=== PATIENT | male | born 1975 | race Two or more races ===

== ENCOUNTER 2018-05-11 08:44 | Emergency (ER) | payer OTHER ==
[2018-05-11] MEDS ORDERED: ONDANSETRON 4 MG/2 ML VIAL IVP ONE (09:03)
[2018-05-11] MEDS ORDERED: NS 1,000 ML IV ONE ×2 (09:03→09:31)
--- NOTE | 2018-05-11 09:27 | EDPHY ---
H & P Time Seen by Provider: 05/11/18 09:25 HPI/ROS: Chief complaint. Abdominal pain HPI. 43-year-old male presents emergency department with left-sided abdominal and flank pain that began at 5:00 a.m. Today. He has had urinary frequency and dysuria the last several days. He has a history of kidney stone and this feels similar. He has had nausea and vomiting. He can't get comfortable. Penis and testicles are normal. No chest pain or shortness of breath. No fever. ROS 10 systems were reviewed and negative with the exception of the elements mentioned in the history of present illness Past Medical/Surgical History: Kidney stone Social History: Single, nonsmoker, no alcohol Smoking Status: Never smoked Physical Exam: General Appearance: Alert well-developed male moderate distress. Vital signs are stable Eyes: Pupils equal and round no pallor or injection. ENT, Mouth: Mucous membranes are moist. Respiratory: There are no retractions, lungs are clear to auscultation. Cardiovascular: Regular rate and rhythm. Gastrointestinal: Abdomen is soft and nontender to my palpation. He shows me left mid abdomen and left flank pain. No masses. Normal bowel sounds Neurological: Awake and alert, sensory and motor exams grossly normal. Skin: Warm and dry, no rashes. Musculoskeletal: Neck is supple nontender. Extremities symmetrical, full range of motion. Psychiatric: Patient is oriented X 3, there is no agitation. Constitutional: Initial Vital Signs Temperature (C) 36.4 C 05/11/18 08:46 Heart Rate 68 05/11/18 08:46 Respiratory Rate 18 05/11/18 08:46 Blood Pressure 147/97 H 05/11/18 08:46 O2 Sat (%) 99 05/11/18 08:46 O2 Delivery Mode Room Air Allergies/Adverse Reactions: No Known Allergies Allergy (Unverified 05/11/18 08:45) Home Medications: Medication Instructions Recorded Ondansetron Odt [Zofran Odt] 4 mg PO Q4PRN PRN #4 tab 05/11/18 oxyCODONE/APAP 5/325 [Percocet 1 tab PO Q4-6PRN PRN #7 tab 05/11/18 5/325] Medical Decision Making - Diagnostics Imaging Results: Imaging Impressions Abdomen/Pelvis CT 05/11/18 09:32 Impression: Distal left ureteral calculus, likely to pass. Results called to Dr. Alexis Barton at 10:05 AM. General information for patients regarding this examination can be found at [email or web address]. If you have questions or comments about this report, please contact me at (hospital) or [phone] (cell). Noncontrast CT reviewed by me and discussed with Dr. Soto shows a 3 mm distal left ureteral calculus Procedures: IV normal saline. Zofran, Dilaudid, Toradol for pain ED Course/Re-evaluation: Re-evaluation 9:50 . Patient is much improved after medication Re-evaluation 10:40 a.m.. Patient is stable. No pain. He and I discussed imaging and lab results. We discussed treatment plan including criteria for return importance of follow-up and further evaluation. He expresses understanding and agreement Differential Diagnosis: I considered urinary tract infection, diverticulitis, kidney stone - Data Points Laboratory Results: Laboratory Results 05/11/18 09:00 05/11/18 09:00 05/11/18 05/11/18 05/11/18 09:00 09:00 09:00 WBC 12.12 10^3/uL H 10^3/uL (3.80-9.50) RBC 5.35 10^6/uL 10^6/uL (4.40-6.38) Hgb 16.0 g/dL g/dL (13.7-17.5) Hct 47.6 % % (40.0-51.0) MCV 89.0 fL fL (81.5-99.8) MCH 29.9 pg pg (27.9-34.1) MCHC 33.6 g/dL g/dL (32.4-36.7) RDW 12.9 % % (11.5-15.2) Plt Count 340 10^3/uL 10^3/uL (150-400) MPV 9.7 fL fL (8.7-11.7) Neut % (Auto) 63.6 % % (39.3-74.2) Lymph % (Auto) 25.7 % % (15.0-45.0) [place] % (Auto) 5.0 % % (4.5-13.0) Eos % (Auto) 4.3 % % (0.6-7.6) Baso % (Auto) 0.7 % % (0.3-1.7) Nucleat RBC Rel Count 0.0 % % (0.0-0.2) Absolute Neuts (auto) 7.70 10^3/uL H 10^3/uL (1.70-6.50) Absolute Lymphs (auto) 3.12 10^3/uL H 10^3/uL (1.00-3.00) Absolute Monos (auto) 0.60 10^3/uL 10^3/uL (0.30-0.80) Absolute Eos (auto) 0.52 10^3/uL H 10^3/uL (0.03-0.40) Absolute Basos (auto) 0.09 10^3/uL 10^3/uL (0.02-0.10) Absolute Nucleated RBC 0.00 10^3/uL 10^3/uL (0-0.01) Immature Gran % 0.7 % % (0.0-1.1) Immature Gran # 0.09 10^3/uL 10^3/uL (0.00-0.10) Sodium 138 mEq/L mEq/L (135-145) Potassium 4.4 mEq/L mEq/L (3.5-5.2) Chloride 107 mEq/L mEq/L (97-110) Carbon Dioxide 20 mEq/l L mEq/l (22-31) Anion Gap 11 mEq/L mEq/L (6-14) BUN 14 mg/dL mg/dL (7-23) Creatinine 1.1 mg/dL mg/dL (0.7-1.3) Estimated GFR > 60 Glucose 106 mg/dL H mg/dL (70-100) Calcium 9.5 mg/dL mg/dL (8.5-10.4) Urine Color YELLOW Urine Appearance CLEAR Urine pH 5.0 (5.0-7.5) Ur Specific [place] 1.021 (1.002-1.030) Urine Protein NEGATIVE (NEGATIVE) Urine Ketones NEGATIVE (NEGATIVE) Urine Blood 1+ H (NEGATIVE) Urine Nitrate NEGATIVE (NEGATIVE) Urine Bilirubin NEGATIVE (NEGATIVE) Urine Urobilinogen NEGATIVE EU EU (0.2-1.0) Ur Leukocyte Esterase NEGATIVE (NEGATIVE) Urine RBC 1-3 /hpf /hpf (0-3) Urine WBC 1-3 /hpf /hpf (0-3) Ur Epithelial Cells TRACE /lpf /lpf (NONE-1+) Urine Bacteria TRACE /hpf H /hpf (NONE SEEN) Urine Mucus TRACE /lpf /lpf (NONE-1+) Urine Glucose NEGATIVE (NEGATIVE) Medications Given: Discontinued Medications Hydromorphone HCl (Dilaudid) 1 mg IVP EDNOW ONE Stop: 05/11/18 09:32 Last Admin: 05/11/18 09:37 Dose: 1 mg Sodium Chloride (Ns) 1,000 mls @ 0 mls/hr IV EDNOW ONE; Wide Open PRN Reason: Protocol Stop: 05/11/18 09:04 Last Admin: 05/11/18 09:07 Dose: 1,000 mls Sodium Chloride (Ns) 1,000 mls @ 0 mls/hr IV EDNOW ONE; Wide Open PRN Reason: Protocol Stop: 05/11/18 09:32 Last Admin: 05/11/18 09:39 Dose: 1,000 mls Ketorolac Tromethamine (Toradol) 30 mg IVP EDNOW ONE Stop: 05/11/18 09:32 Last Admin: 05/11/18 09:37 Dose: 30 mg Ondansetron HCl (Zofran) 4 mg IVP EDNOW ONE Stop: 05/11/18 09:04 Last Admin: 05/11/18 09:07 Dose: 4 mg Departure - Departure Disposition: Home, Routine, Self-Care Clinical Impression: Renal colic on left side Condition: Good Instructions: Kidney Stones (ED) Additional Instructions: Drink plenty of fluids and stay hydrated Strain urine next 24-48 hours and save stone for analysis Ibuprofen 600 mg every 6 hr for pain. Percocet in addition for pain if necessary Zofran as needed for nausea and vomiting Return for worsening symptoms Follow-up with Urology Referrals: NONE *PRIMARY CARE P,. [Primary Care Provider] - As per Instructions Jaswinder Paniagua MD [Medical Doctor] - 5-7 days, call for appt. Prescriptions: Ondansetron Odt [Zofran Odt] 4 mg PO Q4PRN PRN #4 tab PRN Reason: Nausea/Vomiting, Use 1st oxyCODONE/APAP 5/325 [Percocet 5/325] 1 tab PO Q4-6PRN PRN #7 tab PRN Reason: Pain, Moderate
[2018-05-11] MEDS ORDERED: HYDROmorphONE/DILAUDID 2 MG/ML INJ IVP ONE (09:31)
[2018-05-11] MEDS ORDERED: KETOROLAC 30 MG/1 ML SDV IVP ONE (09:31)
[2018-05-11 09:39] LABS: PLATELET COUNT 340 10^3/uL (150-400)
[2018-05-11 11:17] VITALS: BP 116/77
== END 2018-05-11 11:17 | disposition home or self-care (01) ==
DX: N23 Unspecified renal colic (principal)
CPT/HCPCS: 96374; J1170; J1885; J2405

== ENCOUNTER 2018-09-14 07:26 | Emergency (ER) | payer OTHER | END 2018-09-14 08:53 | disposition home or self-care (01) ==